=== PATIENT | male | born 1950 | race Caucasian/White ===

== ENCOUNTER → 2016-12-15 | Outpatient (CLI) | payer OTHER | LOC: BMCIMAGING 15:09 | PROVIDERS: ATTEND Family Medicine | DX: M79.621 Pain in right upper arm (principal); R22.31 Localized swelling, mass and lump, right upper limb ==

== ENCOUNTER 2017-01-20 08:31 | Day surgery (SDC) | payer OTHER ==
[2017-01-20] MEDS ORDERED: ASPIRIN EC 325 MG TAB PO ONE ×2 (08:39→08:40)
[2017-01-20] MEDS ORDERED: diphenhydrAMINE 25 MG CAP PO ONE ×2 (08:39→08:40)
[2017-01-20] MEDS ORDERED: NS 1,000 ML IV ONE (08:39)
[2017-01-20] MEDS ORDERED: DIAZEPAM 5 MG TAB PO ONE (08:39)
[2017-01-20] MEDS ORDERED: FAMOTIDINE 20 MG TAB PO ONE (08:39)
[2017-01-20] MEDS ORDERED: FAMOTIDINE 20 MG TAB ONE (08:40)
[2017-01-20] MEDS ORDERED: DIAZEPAM 5 MG TAB ONE (08:40)
--- NOTE | 2017-01-20 09:04 | CPEKG ---
Heart Rate: 55 RR Interval: 1091 P-R Interval: 180 QRSD Interval: 98 QT Interval: 424 QTC Interval: 406 P [place]: 68 QRS [place]: 76 T Wave [place]: 27 EKG Severity - ABNORMAL ECG - EKG Impression: SINUS RHYTHM EKG Impression: LEFT VENTRICULAR HYPERTROPHY Electronically Signed By: Yogesh Ayoub 20-Jan-2017 09:57:32
[2017-01-20 09:20] LABS: % IMMATURE GRANULYOCYTES 0.2 % (0.0-1.1); ABSOLUTE IMMATURE GRANULOCYTES 0.01 10^3/uL (0.00-0.10); ADD DIFF? NO; ADD MORPH? NO; ADD SCAN? NO; ATYPICAL LYMPHOCYTE FLAG 20 (0-99); FRAGMENT RBC FLAG 0 (0-99); HEMATOCRIT 43.7 % (40.0-51.0); HEMOGLOBIN 14.9 g/dL (13.7-17.5); LEFT SHIFT FLG 0 (0-99); LIPEMIA HEMOLYSIS FLAG 90 (0-99); MEAN CELL HEMOGLOBIN CONCENTR. 34.1 g/dL (32.4-36.7); MEAN CELL VOLUME 96.9 fL (81.5-99.8); MEAN PLATELET VOLUME 10.8 fL (8.7-11.7); PLATELET CLUMPS FLAG 10 (0-99); PLATELET COUNT 142 10^3/uL (150-400); RED BLOOD CELL COUNT 4.51 10^6/uL (4.40-6.38); RED CELL DISTRIBUTION WIDTH 12.3 % (11.5-15.2)
[2017-01-20 09:34] LABS: INR 0.96 (0.83-1.16); PROTIME(PATIENT) 12.7 SEC (12.0-15.0)
[2017-01-20 09:40] LABS: ANION GAP 13 mEq/L (8-16); CALCIUM 8.8 mg/dL (8.5-10.4); CARBON DIOXIDE 26 mEq/l (22-31); CHLORIDE 105 mEq/L (97-110); CHOLESTEROL 150 mg/dL (140-220); CHOLESTEROL/HDL RATIO 2.59 RATIO (1.00-4.97); CREATININE 0.9 mg/dL (0.7-1.3); GLOMERULAR FILTRATION RATE > 60; GLUCOSE 99 mg/dL (70-100); HIGH DENSITY LIPOPROTEIN 58 mg/dL (40-65); LDL/HDL RATIO 1.36 RATIO (1.00-3.64); LOW DENSITY LIPOPROTEIN 79 mg/dL (80-100); MAGNESIUM 1.7 mg/dL (1.6-2.3); NON-HIGH DENSITY LIPOPROTEIN 92 mg/dL (90-129); POTASSIUM 4.2 mEq/L (3.5-5.2); SODIUM 144 mEq/L (134-144); TRIGLYCERIDE 69 mg/dL (40-150); VERY LOW DENSITY LIPOPROTEINS 13 mg/dL (8-25)
[2017-01-20] MEDS ORDERED: MIDAZOLAM 2 MG/2 ML VIAL ONE (09:49)
[2017-01-20] MEDS ORDERED: LIDOCAINE 1% 300 MG/30 ML SDV ONE (09:49)
[2017-01-20] MEDS ORDERED: fentaNYL 100 MCG/2 ML INJ ONE (09:49)
[2017-01-20] MEDS ORDERED: IOPAMIDOL (ISOVUE-370) 150 ML BTL IV ONE (09:50)
[2017-01-20] MEDS ORDERED: VERAPAMIL 5 MG/2 ML VIAL ONE (09:50)
[2017-01-20] MEDS ORDERED: HEPARIN 10,000 UNIT/10 ML MDV ONE (09:50)
--- NOTE | 2017-01-20 10:28 | PDPROPOC ---
Sedation Plan of Care Sedation Plan of Care: vital signs stable, mental status noted, patient educated of risks, benefits, alternatives, patient can tolerate sedation ASA Classification: ASA 2 Planned drugs: fentanyl, midazolam Mallampati Score: Class 2 Mallampati Reference Image: Patient passed 3-3-2 rule?: Yes
--- NOTE | 2017-01-20 10:29 | PDHPUP ---
History & Physical Update H&P update statement: This history and physical update is based on an assessment of the patient which was completed after admission or registration (within 24 hours), but prior to the surgery/procedure. H&P update: H&P reviewed & patient examined, no change in patient's condition since H&P completed (Risks and benefits discussed.)
[2017-01-20] MEDS ORDERED: ONDANSETRON 4 MG/2 ML VIAL IVP PRN (11:07)
[2017-01-20] MEDS ORDERED: ATROPINE SULFATE 1 MG/10 ML SYR IVP PRN (11:07)
[2017-01-20] MEDS ORDERED: NITROGLYCERIN 0.4 MG BTL SL PRN (11:07)
--- NOTE | 2017-01-20 11:11 | PDDXCAT ---
Diagnostic Cath Note - . Date: 01/20/17 Supervisor Lime: Colin (Known coronary artery disease. Assessment of overall risk.) - Procedure Access: right wrist Procedure: left heart catheterization, coronary angiography - Materials Left Heart Cath size: 5F Left Heart Cath materials: other ([email or web address]) - Findings-Left Heart Catheterization LM: Unobstructed LAD: Unobstructed with non focal atherosclerosis. LCX: Unobstructed with nonfocal atherosclerosis RCA: Unobstructed with nonfocal atherosclerosis Complications: None Estimated blood loss: <50ml Closure method: TR Band Assessment: Mild to moderate nonobstructive atherosclerosis. Plan: Echocardiogram for assessment of LV function. Aggressive secondary prevention goal LDL cholesterol less than 70 mg/dL. Daily aspirin 81 mg a day. Clinical follow-up. Patient Problems: Problems Problem Status Onset Coronary artery disease Acute Acetabular fracture Acute Clavicle fracture Acute Scapula fracture Acute Multiple rib fractures Acute
[2017-01-20] MEDS ORDERED: ATORVASTATIN CALCIUM 20 MG TAB PO SCH (12:00)
--- NOTE | 2017-01-20 13:07 | ECHO ---
[email or web address] [address] [address] Main: [phone] Fax: Transthoracic Echocardiogram Name: JEFF CORBIN MR#: [id number] Study Date: 01/20/2017 Study Time: 11:40 AM Date of : 1950 Age: 66 year(s) Height: 177.8 cm (70 in.) Weight: 79.38 kg (175 lb.) BSA: 1.97 m2 Gender: Male Examination: Echo Indication: Post Cath, Eval LV Fx Image Quality: Contrast: Requested by: Alejandro Shaw BP: 151 mmHg/83 mmHg Heart Rate: Rhythm: Indication: Post Cath, Eval LV Fx Procedure Staff Direct Mail Clerk: Cristhian Garcia Reading Physician: Derick Wagoner Requesting Provider: Conclusions: Normal size left ventricle. Normal global systolic LV function. EF is 74 %. No regional wall motion abnormality. Trivial mitral valve regurgitation. Trivial tricuspid valve regurgitation. Measurements: Chambers Valvular Assessment AV/MV Valvular Assessment TV/PV Normal Normal Normal Name Value Range Name Value Range Name Value Range Ao Zuri (MM): 3.5 cm (2.2 cm-3.7 AV Vmax: 1.68 m/s (1 m/s-1.7 PV Vmax: 1.43 m/s (0.6 m/s-0.9 cm) m/s) m/s) IVSd (2D): 0.9 cm (0.6 cm-1.1 AV maxP mmHg ( - ) PV PGmax: 8 mmHg ( - ) cm) LVOT Vmax: 0.98 m/s (0.7 m/s-1.1 LVDd (2D): 4.6 cm (4.2 cm-5.9 m/s) cm) MV E Vmax: 0.80 m/s ( - ) LVDs (2D): 2.6 cm (2.1 cm-4 MV A Vmax: 0.48 m/s ( - ) cm) MV E/A: 1.67 ( - ) LVPWd (2D): 1.0 cm (0.6 cm-1 cm) LVEF (2D): 74 (>=54 %) Continued Measurements: Chambers Valvular Assessment AV/MV Name Value Name Value LADs Lon.2 cm MV E' Septal: 0.12 m/s LA Area: 19.6 cm2 MV E/E' Septal: 6.80 LA Volume: 55 ml MV E/E' Lateral: 6.50 Patient: JEFF CORBIN Study Date: 01/20/2017 Page 1 of 2 11:40 AM LA Volume Index: 27.9 ml/m2 Findings: Left Ventricle: Normal size left ventricle. No LV hypertrophy. Normal global systolic LV function. EF is 74 %. No regional wall motion abnormality. Ectopy noted during exam. Right Ventricle: Normal size right ventricle. Normal RV function. Left Atrium: The left atrium is normal in size. Right Atrium: The right atrium is normal in size. Mitral Valve: The mitral valve is normal in appearance and function. Trivial mitral valve regurgitation. Aortic Valve: The aortic valve is normal in appearance and function. The aortic valve is tri-leaflet. No aortic valve stenosis is present. Tricuspid Valve: The tricuspid valve is normal in appearance and function. Trivial tricuspid valve regurgitation. Pulmonic Valve: The pulmonic valve is normal in appearance and function. Aorta: The aorta is normal. Pericardium: No pericardial effusion. (No Signature Object) Patient: JEFF CORBIN Study Date: 01/20/2017 Page 2 of 2 11:40 AM [id number]
== END 2017-01-20 15:44 | disposition home or self-care (01) ==
LOC: FCATH 08:31
PROVIDERS: ATTEND Internal Medicine Interventional Cardiology
PROC: 4A023N7 Measurement of Cardiac Sampling and Pressure, Left Heart, Percutaneous Approach (ICD-10-PCS; principal; 2017-01-20)
PROC: B2111ZZ Fluoroscopy of Multiple Coronary Arteries using Low Osmolar Contrast (ICD-10-PCS; principal; 2017-01-20)
DX: I25.10 Atherosclerotic heart disease of native coronary artery without angina pectoris (principal); Z95.1 Presence of aortocoronary bypass graft
CPT/HCPCS: 93005; 93306; 93458; C1769; J1200; J1644; J2250; J3010; Q9967